=== PATIENT | female | born 2000 | race Caucasian/White ===

== ENCOUNTER 2021-06-23 10:34 | Emergency (ER) | payer OTHER, SELFPAY ==
--- NOTE | ~2021-06-23 | XR_ITS ---
XR ankle LT min 3V 06/23/2021 10:56 INDICATION: Left ankle pain PROCEDURE: 4 views left ankle COMPARISON: No prior studies for comparison. FINDINGS: Fracture, dislocation or subluxation is not identified. The soft tissues appear within norm al limits. No foreign bodies are identified. IMPRESSION: 1: NO ACUTE BONE OR JOINT ABNORMALITY IDENTIFIED. Reviewed, dictated and finalized at location A.
[2021-06-23 10:45] VITALS: BP 111/55; PULSE 87; RESP 16; TEMP 37.7; O2SAT 99
--- NOTE | 2021-06-23 11:38 | ED.LOWEXIN ---
HPI - Extremity Injury (Lower) General Chief Complaint: Extremity Injury, Lower Stated Complaint: left ankle injury Time Seen by Provider: 06/23/21 11:27 Source: patient, family and RN notes reviewed Mode of arrival: wheelchair Limitations: no limitations History of Present Illness HPI Narrative: Patient presents today complaining of left ankle injury. She missed a step and rolled her ankle last night. She was bearing weight last night, but this has become more painful today. Denies numbness or tingling in the leg or foot. She currently rates her pain 1/10 at rest, but this increases to 7/10 with weightbearing. She has been taking ibuprofen and wearing a brace at home, which does help slightly. MD complaint: ankle injury Related Data Home Medications Medication Instructions Recorded Confirmed No Home Medications 06/23/21 06/23/21 Allergies Allergy/AdvReac Type Severity Reaction Status Date / Time No Known Allergies Allergy Verified 06/23/21 10:56 Review of Systems Review of Systems: CONSTITUTIONAL: Denies body aches, fever, chills, or sweats. EYES: Denies visual changes, redness, or discharge. ENT: Denies rhinorrhea, congestion, sore throat, or otalgia. CARDIOVASCULAR: Denies chest pain, palpitations, or edema. RESPIRATORY: Denies cough or dyspnea. GASTROINTESTINAL: Denies abdominal pain, nausea, vomiting, or diarrhea. GENITOURINARY: Denies dysuria or hematuria. SKIN: Denies rash, itching, or wounds. MUSCULOSKELETAL: Denies back pain, or myalgia. + Left ankle injury NEUROLOGIC: Denies headache, numbness, tingling, or weakness. PSYCH: Denies depression or anxiety. PMFSH Comments At time of signature, I have reviewed and agree with nursing past medical, surgical, social and family history unless otherwise noted. Please see nursing chart for further information. There is no relevant family history pertinent to the presenting complaint Exam Narrative: GENERAL: Well-appearing, well-nourished, and in no acute distress. HEAD: Normocephalic, atraumatic. EYES: EOMI. No redness or drainage. Conjunctivae normal. ENT: Mucous membranes pink and moist. NECK: Normal AROM. CHEST: No respiratory distress. EXTREMITIES: Left ankle: Tenderness, mild ecchymosis, and mild edema to the lateral malleolus. No tenderness medially. No tenderness to the foot. Distal sensation intact. Capillary refill normal. Pedal pulse normal. Decreased range of motion of the ankle due to pain. SKIN: Warm, dry, no rash. Capillary refill normal. Normal skin turgor. NEURO: No focal deficits. Alert and oriented x3. Gait steady. PSYCH: Normal affect. No signs of depression or anxiety. Course Vital Signs Vital signs: Vital Signs Temperature 100 F H 06/23/21 10:45 Pulse Rate 87 06/23/21 10:45 Respiratory Rate 16 06/23/21 10:45 Blood Pressure 111/55 L 06/23/21 10:45 Pulse Oximetry 99 06/23/21 10:45 Temperature 100 F H 06/23/21 10:45 Pulse Rate 87 06/23/21 10:45 Respiratory Rate 16 06/23/21 10:45 Blood Pressure 111/55 L 06/23/21 10:45 Pulse Oximetry 99 06/23/21 10:45 Reviewed MDM - Extremity Injury (Lower) Differential Diagnosis Differential diagnosis: Likely ankle sprain and strain and ankle fracture Imaging Data Radiologist's impression: ITS Impressions Ankle X-Ray 06/23/21 11:05 IMPRESSION: 1: NO ACUTE BONE OR JOINT ABNORMALITY IDENTIFIED. Critical Care Time Critical Care Time Critical Care Time: No Discharge Plan Discharge Clinical Impression: Left ankle sprain Qualifiers: Encounter type: initial encounter Involved ligament of ankle: unspecified ligament Qualified Code(s): S93.402A - Sprain of unspecified ligament of left ankle, initial encounter Patient Disposition: Home, Self-Care Condition: Stable Instructions: Ankle Sprain (DC) Additional Instructions: Your x-ray is negative for fracture today. Wear your ankle brace for comfort and stability. El
== END 2021-06-23 11:54 | disposition home or self-care (01) ==
PROVIDERS: Emergency Provider Nurse Practitioner; PCP Family Medicine
DX: S93.402A Sprain of unspecified ligament of left ankle, initial encounter (principal); X50.9XXA Other and unspecified overexertion or strenuous movements or postures, initial encounter
CPT/HCPCS: 73610; 99213; G0463

== ENCOUNTER 2022-07-06 10:52 | Emergency (ER) | payer OTHER, SELFPAY ==
--- NOTE | 2022-07-06 10:54 | ED.URI ---
HPI - URI/Sore Throat General Chief Complaint: Upper Respiratory Infection Stated Complaint: sore throat Time Seen by Provider: 07/06/22 10:54 Source: patient and RN notes reviewed History of Present Illness HPI Narrative: Patient is a 21-year-old female who presents the urgent care with complaints of a sore throat since Friday. Patient states that she woke up this morning with white patches . Patient states she has been taking Zicam. Denies of any ill exposures. Denies of fever, nausea or vomiting. No other acute complaints. No acute distress noted. Patient aware of the plan of care. Some parts of this dictation were generated by voice recognition software and may contain typographical and/or grammatical inaccuracies. Related Data Allergies Allergy/AdvReac Type Severity Reaction Status Date / Time No Known Allergies Allergy Verified 06/23/21 10:56 Review of Systems Review of Systems: CONSTITUTIONAL: Denies fever, chills, or sweats. EYES: Denies visual changes, redness, or discharge. ENT: Denies rhinorrhea, congestion, otalgia. Reports of sore throat CARDIOVASCULAR: Denies chest pain, palpitations, or edema. RESPIRATORY: Denies cough or dyspnea. GASTROINTESTINAL: Denies abdominal pain, nausea, vomiting, or diarrhea. GENITOURINARY: Denies dysuria or hematuria. SKIN: Denies rash or itching. MUSCULOSKELETAL: Denies back pain, joint pain, or myalgia. NEUROLOGIC: Denies headache, numbness, or weakness. All other systems reviewed are negative, except as documented in HPI. PMFSH Comments At the time of my signature, I reviewed and agree with the nursing past medical, surgical, social, and family history. There is no relevant family history pertinent to the patient complaint. Exam Narrative: GENERAL: This is a well-nourished, well-developed patient, in no apparent distress. HEAD: normocephalic, atraumatic. EYES: PERRL. Sclera clear/white. Vision is grossly intact. EARS: External ears normal, auditory canals clear and without drainage, TMs normal without perforation. Hearing grossly intact. NOSE: External nose normal with no obvious nasal discharge, nares without redness, no rhinorrhea. THROAT: Mucous membranes moist. Mild bilateral tonsillar edema without erythema. Bilateral exudate and moderate postnasal drainage. NECK: Neck supple, non-tender without lymphadenopathy CARDIOVASCULAR: Regular rate and rhythm without murmurs, gallops, or rubs. RESPIRATORY: Clear to auscultation. Breath sounds equal bilaterally. No wheezes, rales, or rhonchi. SKIN: warm, intact with no suspicious lesions or rash, good texture and turgor. NEURO: awake, alert, and oriented to person, place and time. There were no obvious focal neurologic abnormalities. EXTREMITIES: No clubbing, cyanosis, or edema. Course Course Level of Care: Express Care Visit Vital Signs Vital signs: Vital Signs Temperature 99.9 F H 07/06/22 10:57 Pulse Rate 91 07/06/22 10:57 Respiratory Rate 16 07/06/22 10:57 Blood Pressure 109/75 07/06/22 10:57 Pulse Oximetry 100 07/06/22 10:57 Temperature 99.9 F H 07/06/22 10:57 Pulse Rate 91 07/06/22 10:57 Respiratory Rate 16 07/06/22 10:57 Blood Pressure 109/75 07/06/22 10:57 Pulse Oximetry 100 07/06/22 10:57 Reviewed MDM - URI/Sore Throat MDM Narrative Medical decision making narrative: Reviewed lab results with the patient. She is aware that strep swab was negative. Educated patient on culture we will call within 72 hours if culture is positive and antibiotics are necessary. Advised patient to complete the steroid regimen as prescribed. Continue your daily Zicam and use Benadryl prior to bedtime. Follow-up with your PCP within 2 to 5 days or for worsening symptoms or failure to improve. Differential Diagnosis Differential diagnosis: Likely upper respiratory infection, croup, otitis media, sinusitis, viral infection, bronchitis and influenza Lab Data Attestation: I reviewed the patie
[2022-07-06 10:57] VITALS: BP 109/75; PULSE 91; RESP 16; TEMP 37.7; O2SAT 100
== END 2022-07-06 11:22 | disposition home or self-care (01) ==
PROVIDERS: Emergency Provider Nurse Practitioner Family; PCP Family Medicine
DX: J02.9 Acute pharyngitis, unspecified (principal)
CPT/HCPCS: 87081; 87880; 99213; G0463

== ENCOUNTER 2022-08-31 12:22 | Emergency (ER) | payer OTHER, SELFPAY ==
[2022-08-31 12:34] VITALS: BP 113/74; PULSE 70; RESP 16; TEMP 36.9; O2SAT 100
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
== END 2022-08-31 15:00 | disposition home or self-care (01) ==
PROVIDERS: Emergency Provider Nurse Practitioner Family; PCP Family Medicine
DX: S13.4XXA Sprain of ligaments of cervical spine, initial encounter (principal); V43.62XA Car passenger injured in collision with other type car in traffic accident, initial encounter; M41.9 Scoliosis, unspecified
CPT/HCPCS: 99213; G0463

== ENCOUNTER 2022-10-05 13:15 | Outpatient (CLI) | payer OTHER, SELFPAY ==
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
== END 2022-10-05 13:16 | disposition home or self-care (01) ==
PROVIDERS: PCP Family Medicine; Visit Provider Family Medicine
DX: M54.2 Cervicalgia (principal); M41.9 Scoliosis, unspecified; M54.50 Low back pain, unspecified
CPT/HCPCS: 72052; 72082; 72110

== ENCOUNTER 2023-07-07 15:48 | Outpatient (CLI) | payer OTHER, SELFPAY ==
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
== END 2023-07-07 15:49 ==
LOC: MICIMG 15:49
PROVIDERS: PCP Family Medicine; Visit Provider Family Medicine
DX: M43.02 Spondylolysis, cervical region (principal); M41.83 Other forms of scoliosis, cervicothoracic region
CPT/HCPCS: 72141